=== PATIENT | female | born 1985 | race Caucasian/White ===

== ENCOUNTER 2018-01-02 10:22 | Observation (INO) ==
--- NOTE | 2018-01-02 12:29 | US ---
EXAM DATE: 01/02/2018 11:46 AM EDT AGE/SEX: 32 years / Female INDICATIONS: Vaginal bleeding for 10 days. CLINICAL DATA: This is the patient's initial encounter. Patient reports that signs and symptoms have been present for 2 weeks and indicates a pain score of 0/10. MEDICAL/SURGICAL HISTORY: . Vaginal bleeding for 10 days. Tubal ligation. COMPARISON: None. MEASUREMENTS: Uterus:__8.5 x 5.8 x 6.0 cm Endometrial Stripe:__12 mm Right Ovary:__ 3.4 x 2.1 x 2.7 cm Left Ovary:__ 4.0 x 2.1 x 2.6 cm cm FINDINGS: Uterus: The myometrium is heterogeneous. Multiple small focal areas of decreased echogenicity consis tent with intramural uterine fibroids are noted. The largest measures 3.2 cm and does distort the end ometrial canal. A trace amount of fluid seen within the endometrial canal. Endometrial Stripe: The endometrial stripe displays homogeneous echotexture. Right Ovary: Ovary contains no mass. A 1.4 cm simple cyst observed. Posterior acoustical enhancement noted. Follicles are present. Left Ovary: Ovary contains no mass. A 1.4 cm simple cyst is seen. Posterior acoustical enhancement n oted. Follicles are present. Fluid: No free fluid. Other: None. CONCLUSION: 1. Multiple small uterine fibroids. The largest measures 3.2 cm and distorts the endometrial canal w hich contains a small amount of fluid. 2. Small bilateral ovarian cysts. Electronically signed by: Charly Bauer MD 01/02/2018 12:28 PM EDT
[2018-01-02 12:46] LABS: Anion Gap 9 meq/L (5-15); Blood Urea Nitrogen 4 mg/dL (7-18); Calcium 8.8 mg/dL (8.5-10.1); Carbon Dioxide 23.1 meq/L (21.0-32.0); Chloride 109 meq/L (98-107); Glomerular Filtration Rate Greater Than 89 mL/min (>89); Glucose,Random 83 mg/dL (74-106); Sodium 141 meq/L (136-145)
[2018-01-02 12:47] LABS: Potassium 4.6 meq/L (3.5-5.1)
--- NOTE | 2018-01-02 12:48 | ED ---
HPI General Chief complaint: Vaginal Bleeding Stated complaint: Low hemoglobin Time Seen by Provider: 01/02/18 11:32 Source: patient Mode of arrival: ambulatory Limitations: no limitations History of Present Illness HPI Narrative: Patient is a 32-year-old female that presents for the evaluation of heavy vaginal bleeding. The patient states that the vaginal bleeding began 10 days ago at the start of her regular menstrual period. She states that for the past 6 months her periods have lasted 5 days and have been very heavy. She states that she does not normally bleed for more than 5 days. She states that her current bleeding comes and goes. She states that she was bleeding very bad this morning where she was "passing clots" but she now states that the bleeding has slowed. She was evaluated in the ER on Tuesday for heavy vaginal bleeding. She states that her hemoglobin at that time was 7 and she was prescribed ferrous sulfate. The patient followed up again at the ER Tuesday where she states that her hemoglobin was 8. The patient states that she was evaluated this morning by her new provider. She states that in the office they performed a finger stick hemoglobin which she reports was 6.9. The patient states that the provider sent her to the ER for evaluation. Upon review of symptoms the patient reports fatigue, denies fever, and denies chills. She states that she has experienced palpitations but denies chest pain. She reports shortness of breath. She denies nausea or vomiting. She states that she has been having headaches for the past couple days but she denies any current headache. Related Data Previous Rx's Medication Instructions Recorded ferrous sulfate 325 mg PO TID 30 Days #90 tab 12/31/17 Allergies Allergy/AdvReac Type Severity Reaction Status Date / Time No Known Allergies Allergy Verified 01/01/18 14:04 Review of Systems ROS: all other systems reviewed are negative [facility] Medical History Medical History Anemia (Acute) Patient denies medical problems (Acute) Preeclampsia (Acute) Tubal ligation status (Acute) Social History Social History Substance History: No History of Abuse Second Hand Smoke Exposure: No Smoking Status: Never smoker Tobacco Type: Cigarettes How Often Do You Have a Drink Containing Alcohol: 2 to 4 times a month Recent Travel in [facility] within the Last 8 Weeks: No Recent Out of Country Travel within the Last 8 Weeks: No Immunization History Tetanus Immunization: Unsure Exam Narrative Exam Narrative: GENERAL: SKIN: Warm and dry. Pale. HEAD: Atraumatic. Normocephalic. EYES: Pupils equal and round. No scleral icterus. No injection or drainage. ENT: No nasal bleeding or discharge. Mucous membranes pink and moist. NECK: Trachea midline. No JVD. CARDIOVASCULAR: Regular rate and rhythm. RESPIRATORY: No accessory muscle use. Clear to auscultation. Breath sounds equal bilaterally. GASTROINTESTINAL: Abdomen soft, non-tender, nondistended. Hepatic and splenic margins not palpable. MUSCULOSKELETAL: Extremities without clubbing, cyanosis, or edema. No obvious deformities. Full ROM of the upper and lower extremities bilaterally. NEUROLOGICAL: Awake and alert. No obvious cranial nerve deficits. Motor grossly within normal limits. Five out of 5 muscle strength in the arms and legs. Normal speech. PSYCHIATRIC: Appropriate mood and affect; insight and judgment normal. Course Initial Documented Vital Signs Temperature 98.7 F 01/02/18 11:10 Pulse Rate 111 H 01/02/18 11:10 Respiratory Rate 19 01/02/18 11:10 Blood Pressure 164/84 H 01/02/18 11:10 Pulse Oximetry 100 01/02/18 11:10 Last Documented Vital Signs Temperature 98.7 F 01/02/18 11:10 Pulse Rate 94 H 01/02/18 11:27 Respiratory Rate 18 01/02/18 11:27 Blood Pressure 169/79 H 01/02/18 11:27 Pulse Oximetry 98 01/02/18 11:27 Medical Decision Making BENITO Attestation BENITO supervised visit: Yes Attestation: I, Dr. Zavala, have reviewed the advance practice practitioner's documentation and am in agreement, met with the patient face to face, made the diagnosis, and the medical decision making was done by me. *My assessment and Findings: Dysfunctional uterine bleeding with fibroids. Anemia with symptoms. Admit to the hospitalist service with ROLL ON WORKER consult. [facility] Narrative Medical decision making narrative: 32-year-old female that presents to the ED for evaluation of bleeding. Patient was properly examined and was found to have signs and symptoms consistent with appears to be symptomatically anemia. Labs and imaging ordered. Labs and imaging showed what appears to be worsening anemia. Patient did drop 0.5 points on her hemoglobin. Patient is symptomatic so blood will be given. Ultrasound did show fibroids. Because this is the patient's third visit here and she continues to be brought here by her primary care doctor I do recommend admission for further evaluation and possible ROLL ON WORKER consult to see whether anything needs to be done acutely. For the most part I believe the likely having patient transfuse will help with the symptoms at least until she can follow-up outpatient. Case was discussed with my attending Dr. Zavala who agrees with plan. Case discussed with the patient who agrees with admission. Case discussed with the residents agreed admission to their service. Medical Screen Exam Complete: Yes Emergency Medical Condition: Yes Differential Diagnosis Differential Diagnosis: bleeding vs symptomatic anemia vs dehydration vs vagina bleeding Medical Records Medical records reviewed: Yes I reviewed the patient's medical records. Lab Data Lab results reviewed: Yes I reviewed the patient's lab results. Result diagrams: 01/02/18 12:52 01/02/18 11:55 Lab Results 01/02/18 01/02/18 01/02/18 Range/Units 11:55 11:55 12:25 WBC (4.0-11.0) th/mm3 RBC (4.00-5.30) mil/mm3 Hgb (11.6-15.3) gm/dL Hct (35.0-46.0) % MCV (80.0-100.0) fL MCH (27.0-34.0) pg MCHC (32.0-36.0) % RDW (11.6-17.2) % Plt Count (150-450) th/mm3 MPV (7.0-11.0) fL Neut % (Auto) (16.0-70.0) % Lymph % (Auto) (9.0-44.0) % Camas % (Auto) (0.0-8.0) % Eos % (Auto) (0.0-4.0) % Baso % (Auto) (0.0-2.0) % Neut # (Auto) (1.8-7.7) th/mm3 Lymph # (Auto) (1.0-4.8) th/mm3 Camas # (Auto) (0.0-0.9) th/mm3 Eos # (Auto) (0.0-0.4) th/mm3 Baso # (Auto) (0.0-0.2) th/mm3 WBC Differential Differential Comment PT (9.8-11.6) sec INR Ratio APTT (24.3-30.1) sec Sodium 141 (136-145) meq/L Potassium 4.6 (3.5-5.1) meq/L Chloride 109 H (98-107) meq/L Carbon Dioxide 23.1 (21.0-32.0) meq/L Anion Gap 9 (5-15) meq/L BUN 4 L (7-18) mg/dL Creatinine 0.71 (0.50-1.00) mg/dL Estimated GFR Greater than 89 (>89) mL/min Random Glucose 83 (74-106) mg/dL Calcium 8.8 (8.5-10.1) mg/dL Blood Type O Positive Blood Type Recheck Required Antibody Screen Negative MTS Gel Crossmatch See Detail 01/02/18 01/02/18 Range/Units 12:52 12:52 WBC 4.7 (4.0-11.0) th/mm3 RBC 2.95 L (4.00-5.30) mil/mm3 Hgb 7.5 L (11.6-15.3) gm/dL Hct 23.5 L (35.0-46.0) % MCV 79.7 L (80.0-100.0) fL MCH 25.4 L (27.0-34.0) pg MCHC 31.9 L (32.0-36.0) % RDW 15.9 (11.6-17.2) % Plt Count 453 H (150-450) th/mm3 MPV 7.0 (7.0-11.0) fL Neut % (Auto) 47.7 (16.0-70.0) % Lymph % (Auto) 42.8 (9.0-44.0) % Camas % (Auto) 6.5 (0.0-8.0) % Eos % (Auto) 1.7 (0.0-4.0) % Baso % (Auto) 1.3 (0.0-2.0) % Neut # (Auto) 2.2 (1.8-7.7) th/mm3 Lymph # (Auto) 2.0 (1.0-4.8) th/mm3 Camas # (Auto) 0.3 (0.0-0.9) th/mm3 Eos # (Auto) 0.1 (0.0-0.4) th/mm3 Baso # (Auto) 0.1 (0.0-0.2) th/mm3 WBC Differential . Differential Comment Auto diff final PT 10.0 (9.8-11.6) sec INR 1.0 Ratio APTT 21.7 L (24.3-30.1) sec Sodium (136-145) meq/L Potassium (3.5-5.1) meq/L Chloride (98-107) meq/L Carbon Dioxide (21.0-32.0) meq/L Anion Gap (5-15) meq/L BUN (7-18) mg/dL Creatinine (0.50-1.00) mg/dL Estimated GFR (>89) mL/min Random Glucose (74-106) mg/dL Calcium (8.5-10.1) mg/dL Blood Type Blood Type Recheck Antibody Screen MTS Gel Crossmatch Imaging Data Attestation: I personally reviewed and interpreted this imaging study as follows : Radiologist's impression: Pelvis Ultrasound 01/02/18 11:46 CONCLUSION: 1. Multiple small uterine fibroids. The largest measures 3.2 cm and distorts the endometrial canal which contains a small amount of fluid. 2. Small bilateral ovarian cysts. Discharge Plan Discharge Disposition Patient Disposition: 30 Still Patient Discharge Details Diagnosis: Symptomatic anemia, Vaginal bleeding Physicians Team ED Provider: Joseph Zavala ED Midlevel Provider: Rock Moreno Primary Care Provider: Primary Care Brenda Hill Attending Provider: Paula Gibson Status ED Status: Admitted Observation Patient
[2018-01-02 13:38] LABS: Baso # (Auto) 0.1 th/mm3 (0.0-0.2); Baso % (Auto) 1.3 % (0.0-2.0); Eos # (Auto) 0.1 th/mm3 (0.0-0.4); Eos % (Auto) 1.7 % (0.0-4.0); Hematocrit 23.5 % (35.0-46.0); Hemoglobin 7.5 gm/dL (11.6-15.3); Lymph % (Auto) 42.8 % (9.0-44.0); Mean Corpuscular HGB Conc 31.9 % (32.0-36.0); Mean Corpuscular Hemoglobin 25.4 pg (27.0-34.0); Mean Corpuscular Volume 79.7 fL (80.0-100.0); Mono # (Auto) 0.3 th/mm3 (0.0-0.9); Mono % (Auto) 6.5 % (0.0-8.0); Neut # (Auto) 2.2 th/mm3 (1.8-7.7); Neut % (Auto) 47.7 % (16.0-70.0); Platelet Count 453 th/mm3 (150-450); Red Blood Count 2.95 mil/mm3 (4.00-5.30); Red Cell Distribution Width 15.9 % (11.6-17.2); White Blood Count 4.7 th/mm3 (4.0-11.0)
[2018-01-02 14:04] LABS: Activated Partial Thrombo Time 21.7 sec (24.3-30.1)
--- NOTE | 2018-01-02 14:31 | P.HPFP ---
History of Present Illness Primary Care Physician: No Primary Care Physician Chief Complaint: Symptomatic anemia History of Present Illness: Patient is a 32 year old female who presents to the [facility] ED for evaluation of heavy menstrual bleeding. Over the last 6 months, patient reports "heavier bleeding." Her periods usually last 4-5 days. However, this period started on and is ongoing. On Tuesday morning she thought her period had stopped but then experienced heavy bleeding in the afternoon. "It seems that my period wants to stop but then starts again." This morning, she reports passing four [id number] clots and soaking through several large pads. Since then, the bleeding has been like a light period. She reports dizziness and fatigue since Tuesday. She reports occasional heart racing. She has had a headache for days but denies a headache today. She denies nausea and vomiting. She denies urinary symptoms. She denies diarrhea and constipation. Patient was seen at [facility] today for a well woman exam. Her "iron" was checked and patient was told that it was low. She was not examined beyond a vital check; HR and BP were found to be elevated per patient. Consequently, she was sent to the ED for a blood transfusion. Patient denies history of DVTs. She quit smoking cigarettes six years ago. Patient has not had TSH checked in years. Patient's dad with hypothyroidism. OB History: vaginal deliveries x3 * pre-eclampsia x2 - induced deliveries * hemorrhage x2 * anemia x3 CATH LAB MANAGER History: Menarche: 9 years old Periods: every 28 days, lasting 4-5 days Pap smear: never abnormal Last pap: 3 years ago, wnl STI: never Social History: Tobacco: Quit six years ago Alcohol: Occasional Drug use: Denies - Diagnosis (1) Symptomatic anemia (2) Menometrorrhagia (3) Fibroid uterus Review of Systems All other systems reviewed negative except as stated in HPI PMFSH - History History Provided By: Patient - Medical History Medical History: Medical History (Last Updated 01/02/18 @ 17:16 by Madison Rizvi MD, R2) Anemia Migraine S/P tubal ligation - Family History Family History: Family History (Last Updated 01/02/18 @ 17:17 by Madison Rizvi MD, R2) Other Family history of hypertension Family history of hypothyroidism Family history of uterine fibroid - Social History I have reviewed the patient's Social History: Yes - Tobacco History Second Hand Smoke Exposure: No Tobacco Use In Past 30 Days: No Smoking Status: Former smoker Tobacco Type: Cigarettes - Alcohol History How Often Do You Have a Drink Containing Alcohol: 2 to 4 times a month - Substance Use History Substance History: No History of Abuse - Travel History History of Recent Travel: No Recent Travel in the [place] Within the Last 8 Weeks: No Recent Travel Out of the Country Within the Last 8 Weeks: No - Immunization History Tetanus Immunization: Unsure Medications and Allergies Allergies Allergy/AdvReac Type Severity Reaction Status Date / Time No Known Allergies Allergy Verified 01/01/18 14:04 Exam Vital signs: Vital Signs 01/02/18 11:10 01/02/18 11:27 Temperature 98.7 F Pulse Rate 111 H 94 H Respiratory Rate 19 18 Blood Pressure 164/84 H 169/79 H Pulse Oximetry 100 98 Narrative: GENERAL: Patient is a well-nourished, well-developed female. Pale in complexion. SKIN: Warm and dry. HEAD: Atraumatic. Normocephalic. EYES: Pupils equal and round. No scleral icterus. No injection or drainage. ENT: No nasal bleeding or discharge. Mucous membranes pink and moist. NECK: Trachea midline. No JVD. CARDIOVASCULAR: Regular rate and rhythm. RESPIRATORY: No accessory muscle use. Clear to auscultation. Breath sounds equal bilaterally. GASTROINTESTINAL: Abdomen soft, non-tender, nondistended. Hepatic and splenic margins not palpable. : Retroverted cervix, no cervical motion tenderness, [id number] uterus. MUSCULOSKELETAL: Extremities without clubbing, cyanosis, or edema. No obvious deformities. NEUROLOGICAL: Awake and alert. No obvious cranial nerve deficits. Motor grossly within normal limits. Normal speech. PSYCHIATRIC: Appropriate mood and affect; insight and judgment normal. Results - Labs Result diagrams: 01/02/18 12:52 01/02/18 11:55 Abnormal lab results 01/02/18 01/02/18 01/02/18 Range/Units 11:55 12:25 12:52 RBC 2.95 L (4.00-5.30) mil/mm3 Hgb 7.5 L (11.6-15.3) gm/dL Hct 23.5 L (35.0-46.0) % MCV 79.7 L (80.0-100.0) fL MCH 25.4 L (27.0-34.0) pg MCHC 31.9 L (32.0-36.0) % Plt Count 453 H (150-450) th/mm3 APTT (24.3-30.1) sec Chloride 109 H (98-107) meq/L BUN 4 L (7-18) mg/dL MTS Gel Crossmatch See Detail 01/02/18 Range/Units 12:52 RBC (4.00-5.30) mil/mm3 Hgb (11.6-15.3) gm/dL Hct (35.0-46.0) % MCV (80.0-100.0) fL MCH (27.0-34.0) pg MCHC (32.0-36.0) % Plt Count (150-450) th/mm3 APTT 21.7 L (24.3-30.1) sec Chloride (98-107) meq/L BUN (7-18) mg/dL MTS Gel Crossmatch Short CBC 01/02/18 Range/Units 12:52 WBC 4.7 (4.0-11.0) th/mm3 Hgb 7.5 L (11.6-15.3) gm/dL Hct 23.5 L (35.0-46.0) % Plt Count 453 H (150-450) th/mm3 BMP 01/02/18 11:55 Sodium 141 Potassium 4.6 Chloride 109 H Carbon Dioxide 23.1 BUN 4 L Creatinine 0.71 Calcium 8.8 - Imaging Impressions Pelvis Ultrasound 01/02/18 11:46 CONCLUSION: 1. Multiple small uterine fibroids. The largest measures 3.2 cm and distorts the endometrial canal which contains a small amount of fluid. 2. Small bilateral ovarian cysts. Caprini VTE Risk Assessment Caprini VTE Risk Assessment: No/Low Risk (score <= 1) VTE Pharmacological Exception Reason: Active bleeding Caprini Risk Assessment Model: Point Value = 1 Point Value = 2 Point Value = 3 Point Value = 5 Age 41-60 Minor surgery BMI > 25 kg/m2 Swollen legs Varicose veins or History of unexplained or recurrent spontaneous Oral contraceptives or hormone replacement Sepsis (< 1 month) Serious lung disease, including pneumonia (< 1 month) Abnormal pulmonary function Acute myocardial infarction Congestive heart failure (< 1 month) History of inflammatory bowel disease Medical patient at bed rest Age 61-74 Arthroscopic surgery Major open surgery (> 45 min) Laparoscopic surgery (> 45 min) Malignancy Confined to bed (> 72 hours) Immobilizing plaster cast Central venous access Age >= 75 History of VTE Family history of VTE Factor V Leiden Prothrombin [id number] Lupus anticoagulant Anticardiolipin antibodies Elevated serum homocysteine Heparin-induced thrombocytopenia Other congenital or acquired thrombophilia Stroke (< 1 month) Elective arthroplasty Hip, pelvis, or leg fracture Acute spinal cord injury (< 1 month) Prophylaxis Regimen: Total Risk Factor Score Risk Level Prophylaxis Regimen 0-1 Low Early ambulation 2 Moderate Order ONE of the following: *Sequential Compression Device (SCD) *Heparin 5000 units SQ BID 3-4 Higher Order ONE of the following medications: *Heparin 5000 units SQ TID *Enoxaparin/Lovenox 40 mg SQ daily (WT < 150 kg, CrCl > 30 mL/min) *Enoxaparin/Lovenox 30 mg SQ daily (WT < 150 kg, CrCl > 10-29 mL/min) *Enoxaparin/Lovenox 30 mg SQ BID (WT < 150 kg, CrCl > 30 mL/min) AND/OR *Sequential Compression Device (SCD) 5 or more Highest Order ONE of the following medications: *Heparin 5000 units SQ TID (Preferred with Epidurals) *Enoxaparin/Lovenox 40 mg SQ daily (WT < 150 kg, CrCl > 30 mL/min) *Enoxaparin/Lovenox 30 mg SQ daily (WT < 150 kg, CrCl > 10-29 mL/min) *Enoxaparin/Lovenox 30 mg SQ BID (WT < 150 kg, CrCl > 30 mL/min) AND *Sequential Compression Device (SCD) Assessment and Plan - Assessment (1) Symptomatic anemia Code(s): D64.9 - Anemia, unspecified Status: Acute (2) Menometrorrhagia Code(s): N92.1 - Excessive and frequent menstruation with irregular cycle Status: Acute (3) Fibroid uterus Code(s): D25.9 - Leiomyoma of uterus, unspecified Status: Acute - Assessment and Plan Patient is a 32 year old female who presents to the [facility] ED for evaluation of heavy menstrual bleeding. Patient was found to have Hgb of 7.5. Transfusion of two units of pRBCs initiated in ED. Pelvic US with evidence of small uterine intramural fibroids. CATH LAB MANAGER consulted; recommended Orthocylen cascade and outpatient CATH LAB MANAGER follow-up. Symptomatic Anemia: Labs: * Hgb 7.5. * TSH 1.200. * VonWillebrand evaluation pending. Imaging: * Pelvic US: Multiple small uterine fibroids. The largest measures 3.2 cm and distorts the endometrial canal which contains a small amount of fluid. Small bilateral ovarian cysts. Patient receiving 2 units of pRBCs. Post-transfusion H&H pending. Menometrorrhagia: Likely secondary to uterine fibroids. Thyroid function wnl. Patient to be discharged on Orthocylen cascade. Outpatient CATH LAB MANAGER follow-up with Dr. Samayoa arranged by CATH LAB MANAGER consult. FEN: Fluid: * Tolerating PO. Electrolytes: * Monitor and replete as necessary. Nutrition: * Regular Diet. DVT Prophylaxis: * Encourage ambulation.
[2018-01-02] MEDS ORDERED: Acetaminophen 325 MG Tablet PO PRN (15:12)
--- NOTE | 2018-01-02 18:45 | P.CONOB ---
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 Over the last 6 months, patient reports "heavier bleeding." Her periods usually last 4-5 days. However, this period started on and is ongoing. On Tuesday morning she thought her period had stopped but then experienced heavy bleeding in the afternoon. "It seems that my periods wants to stop but then start again." This morning, she reports passing four [id number] clots and soaking through several large pads. Since then, the bleeding has been like a light period. She reports dizziness and fatigue since Tuesday. She reports occasional heart racing. She has had a headache for days but denies a headache today. She denies nausea and vomiting. She denies urinary symptoms. She denies diarrhea and constipation. Patient was seen at [facility] today for a well woman exam. Her "iron" was checked and patient was told that it was low. She was not examined beyond vital check; HR and BP were found to be elevated per patient. Consequently, she was sent to the ED for a blood transfusion. Patient denies history of DVTs. She quit smoking cigarettes six years ago. Patient has not had TSH checked in years. Patient dad with hypothyroidism. 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: Menarche: 9 years old Periods: every 28 days, lasting 4-5 days Pap smear: never abnormal Last pap: 3 years ago, wnl STI: never Social History: Tobacco: Quit six years ago Alcohol: Occasional Drug use: Denies PMFSH - History History Provided By: Patient - Medical History Medical History: Medical History (Last Updated 01/02/18 @ 17:16 by Madison Rizvi MD, R2) Anemia Migraine S/P tubal ligation - Family History Family History: Family History (Last Updated 01/02/18 @ 17:17 by Madison Rizvi MD, R2) Other Family history of hypertension Family history of hypothyroidism Family history of uterine fibroid - Tobacco History Second Hand Smoke Exposure: No Tobacco Use In Past 30 Days: No Smoking Status: Former smoker Tobacco Type: Cigarettes - Alcohol History How Often Do You Have a Drink Containing Alcohol: 2 to 4 times a month - Substance Use History Substance History: No History of Abuse - Travel History History of Recent Travel: No Recent Travel in the [place] Within the Last 8 Weeks: No Recent Travel Out of the Country Within the Last 8 Weeks: No - Immunization History Tetanus Immunization: Unsure Medications and Allergies Active Medications: Active Medications Acetaminophen (Tylenol) 650 mg PO Q4H PRN PRN Reason: Temp > 100.4 Ondansetron HCl (Zofran Inj) 4 mg IV.PUSH Q6H PRN PRN Reason: NAUSEA OR VOMITING Allergies Allergy/AdvReac Type Severity Reaction Status Date / Time No Known Allergies Allergy Verified 01/01/18 14:04 Exam Vital signs: Vital Signs 01/02/18 11:10 01/02/18 11:27 01/02/18 15:05 Temperature 98.7 F 98.9 F Pulse Rate 111 H 94 H 88 Respiratory Rate 19 18 18 Blood Pressure 164/84 H 169/79 H 129/72 Pulse Oximetry 100 98 98 01/02/18 15:09 01/02/18 16:14 01/02/18 16:42 Temperature 99 F 99.0 F 98.5 F Pulse Rate 92 H 81 87 Respiratory Rate 18 20 18 Blood Pressure 147/79 H 135/83 130/77 Pulse Oximetry 98 99 01/02/18 17:03 01/02/18 18:06 Temperature 98.0 F 98.5 F Pulse Rate 85 79 Respiratory Rate 18 20 Blood Pressure 125/82 128/83 Pulse Oximetry 99 99 Intake & Output 01/01/18 01/02/18 01/02/18 18:59 06:59 18:59 Intake Total 400 / 400 Balance 400 / 400 Weight 77.111 kg Intake: Intake (Blood Product) Amt 400 / 400 Rbc As-3 Leukoreduced Unit 400 / 400 [id number] Rbc As-3 Leukoreduced Unit 0 / 0 [id number] Other: Weight On Admission 77.111 kg Results - Labs CBC & Chem 7: 01/02/18 12:52 01/02/18 11:55 Labs: Laboratory Results - last 24 hr 01/02/18 01/02/18 01/02/18 11:55 11:55 11:55 WBC RBC Hgb Hct MCV MCH MCHC RDW Plt Count MPV Neut % (Auto) Lymph % (Auto) [place] % (Auto) Eos % (Auto) Baso % (Auto) Neut # (Auto) Lymph # (Auto) [place] # (Auto) Eos # (Auto) Baso # (Auto) WBC Differential Differential Comment PT INR APTT Sodium 141 Potassium 4.6 Chloride 109 H Carbon Dioxide 23.1 Anion Gap 9 BUN 4 L Creatinine 0.71 Estimated GFR Greater than 89 Random Glucose 83 Calcium 8.8 TSH 1.200 Blood Type O Positive Blood Type Recheck Required Antibody Screen Negative MTS Gel Crossmatch 01/02/18 01/02/18 01/02/18 12:25 12:52 12:52 WBC 4.7 RBC 2.95 L Hgb 7.5 L Hct 23.5 L MCV 79.7 L MCH 25.4 L MCHC 31.9 L RDW 15.9 Plt Count 453 H MPV 7.0 Neut % (Auto) 47.7 Lymph % (Auto) 42.8 [place] % (Auto) 6.5 Eos % (Auto) 1.7 Baso % (Auto) 1.3 Neut # (Auto) 2.2 Lymph # (Auto) 2.0 [place] # (Auto) 0.3 Eos # (Auto) 0.1 Baso # (Auto) 0.1 WBC Differential . Differential Comment Auto diff final PT 10.0 INR 1.0 APTT 21.7 L Sodium Potassium Chloride Carbon Dioxide Anion Gap BUN Creatinine Estimated GFR Random Glucose Calcium TSH Blood Type Blood Type Recheck Antibody Screen MTS Gel Crossmatch See Detail - Imaging Impressions Pelvis Ultrasound 01/02/18 11:46 CONCLUSION: 1. Multiple small uterine fibroids. The largest measures 3.2 cm and distorts the endometrial canal which contains a small amount of fluid. 2. Small bilateral ovarian cysts.
[2018-01-02 20:31] LABS: Hemoglobin 10.9 gm/dL (11.6-15.3)
[2018-01-03 00:15] VITALS: O2SAT 98
[2018-01-03 07:24] LABS: Hematocrit 34.2 % (35.0-46.0); Mean Corpuscular HGB Conc 32.1 % (32.0-36.0); Mean Corpuscular Hemoglobin 26.4 pg (27.0-34.0); Mean Corpuscular Volume 82.2 fL (80.0-100.0); Mean Platelet Volume 6.8 fL (7.0-11.0); Platelet Count 415 th/mm3 (150-450); Red Blood Count 4.16 mil/mm3 (4.00-5.30); Red Cell Distribution Width 16.6 % (11.6-17.2); White Blood Count 5.6 th/mm3 (4.0-11.0)
[2018-01-03 07:38] VITALS: BP 141/77; PULSE 84; RESP 18; TEMP 97.8
--- NOTE | 2018-01-03 10:55 | P.PNADD ---
Addendum to Inpatient Note Reason for Addendum: Additional Documentation Additional information: Please see resident H&P for full documentation of the patients history and admission information. Patient doing well today. No overnight events. Feels back to her baseline. No SOB, no longer weak. Denies CP, no further vaginal bleeding. Vital Signs Temp Pulse Resp BP Pulse Ox 01/03/18 07:38 97.8 F 84 18 141/77 H 98 01/03/18 04:00 97.5 F L 77 16 116/69 98 01/03/18 00:00 98.3 F 93 H 16 126/69 98 01/02/18 19:38 98.4 F 70 18 119/88 01/02/18 19:37 98.4 F 70 16 119/88 97 01/02/18 18:06 98.5 F 79 20 128/83 99 01/02/18 17:03 98.0 F 85 18 125/82 99 01/02/18 16:42 98.5 F 87 18 130/77 01/02/18 16:14 99.0 F 81 20 135/83 99 01/02/18 15:09 99 F 92 H 18 147/79 H 98 01/02/18 15:05 98.9 F 88 18 129/72 98 01/02/18 11:27 94 H 18 169/79 H 98 01/02/18 11:10 98.7 F 111 H 19 164/84 H 100 Intake and Output 01/02/18 01/03/18 01/03/18 22:59 06:59 14:59 Intake Total 800 / 800 Output Total 720 / 720 Balance 800 / 800 -720 / -720 Intake: Intake (Blood Product) Amt 800 / 800 Rbc As-3 Leukoreduced Unit 400 / 400 [id number] Rbc As-3 Leukoreduced Unit 400 / 400 [id number] Output: Urine 720 / 720 Other: # Voids 0 Date of Last Bowel Movement 01/01/18 Weight 77.111 kg 76.9 kg Weight On Admission 77.111 kg Abnormal Labs 01/02/18 01/02/18 01/02/18 11:55 12:25 12:52 RBC 2.95 L Hgb 7.5 L Hct 23.5 L MCV 79.7 L MCH 25.4 L MCHC 31.9 L Plt Count 453 H MPV APTT Chloride 109 H BUN 4 L MTS Gel Crossmatch See Detail 01/02/18 01/02/18 01/03/18 12:52 20:04 06:50 RBC Hgb 10.9 L D 11.0 L Hct 34.0 L 34.2 L MCV MCH 26.4 L MCHC Plt Count MPV 6.8 L APTT 21.7 L Chloride BUN MTS Gel Crossmatch GENERAL: SKIN: Warm and dry. HEAD: Atraumatic. Normocephalic. EYES: Pupils equal and round. No scleral icterus. No injection or drainage. ENT: No nasal bleeding or discharge. Mucous membranes pink and moist. NECK: Trachea midline. No JVD. CARDIOVASCULAR: Regular rate and rhythm. RESPIRATORY: No accessory muscle use. Clear to auscultation. Breath sounds equal bilaterally. GASTROINTESTINAL: Abdomen soft, non-tender, nondistended. Hepatic and splenic margins not palpable. : Speculum exam -- normal vaginal vault, no active bleeding seen, no lesions MUSCULOSKELETAL: Extremities without clubbing, cyanosis, or edema. No obvious deformities. NEUROLOGICAL: Awake and alert. No obvious cranial nerve deficits. Motor grossly within normal limits. Five out of 5 muscle strength in the arms and legs. Normal speech. PSYCHIATRIC: Appropriate mood and affect; insight and judgment normal. AP: 1. AUB likely due to leiomyomatous uterus with symptomatic anemia. Received 2 units PRBC, Hgb up to 11 and patient no longer symptomatic or bleeding. 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 DC to home today. Patient seen and dw the resident team - Dr. Fermin, Dr. Resendiz, Dr. Camop
== END 2018-01-03 11:58 | disposition home or self-care (01) ==
LOC: NEPC 10:22 → NEDA 10:22 → NEPHCDU 15:50
PROVIDERS: ADMIT Family Medicine; ATTEND Family Medicine
DX: N83.202 Unspecified ovarian cyst, left side; R53.83 Other fatigue; D25.1 Intramural leiomyoma of uterus; Z87.891 Personal history of nicotine dependence; R00.2 Palpitations; N93.8 Other specified abnormal uterine and vaginal bleeding; N83.201 Unspecified ovarian cyst, right side; N92.1 Excessive and frequent menstruation with irregular cycle; D64.9 Anemia, unspecified; N85.4 Malposition of uterus; R06.02 Shortness of breath